=== PATIENT | male | born 1965 | race Caucasian/White ===

== ENCOUNTER 2020-03-11 23:04 | Inpatient (IN) | payer MEDICAID, OTHER ==
[~2020-03-11] VITALS: Ht 177.8 cm; Wt 90.3 kg
--- NOTE | 2020-03-11 23:14 | NUR ---
BIB FAMILY C/O R HIP PAIN S/P FALLING OFF SKATEBBOARD. PT DENIES KO
--- NOTE | 2020-03-11 23:47 | NUR ---
BIBFAMILY FROM HOME TO ER BED 6. AAOX4. NOT IN RESP DISTRESS. CAME IN FOR R HIP PAIN S/P FALLIN GOF A SKATEBOARD. PAIN IS RATE 8/10 AGGREVATED BY MOVEMENT. DENIES HT NOR KO. PEDAL PULSE FELT. SENSATION FELT AND ABLE TO MOVE TOES. NO NOTED ROTATION NOR SHORTENING. MD WAS AT BEDSIDE FOR EVAL. PT DENIED PAIN MEDS AT THIS TIME. ORDERS RECEIVED NOTED AND CARRIED OUT.
--- NOTE | 2020-03-12 00:04 | NUR ---
REPORT GIVEN TO M/S ANGELIC KATZ.
--- NOTE | 2020-03-12 00:05 | NUR ---
BLOOD DRAWN AND SENT TO STAT LAB
[2020-03-12 00:18] LABS: BASOPHILS # (AUTO) 0.1 /CMM (0.0-0.2); BASOPHILS % (AUTO) 0.4 % (0.0-2.0); EOSINOPHILS % (AUTO) 0.3 % (0.0-6.0); HEMATOCRIT 44 % (39-51); HEMOGLOBIN 14.6 g/dL (13.5-17.5); LYMPHOCYTES # (AUTO) 1.3 /CMM (0.8-4.8); LYMPHOCYTES % (AUTO) 8.9 % (20.0-44.0); MEAN CORPUSCULAR HGB CONC 33 g/dl (31.0-36.0); MEAN CORPUSCULAR VOLUME 88 fL (80-96); MONOCYTES # (AUTO) 0.8 /CMM (0.1-1.30); MONOCYTES % (AUTO) 5.5 % (2.0-12.0); NEUTROPHILS # (AUTO) 12.6 /CMM (1.8-8.9); NEUTROPHILS % (AUTO) 84.9 % (43.0-81.0); PLATELET COUNT (AUTO) 246 /CMM (150-450); RED BLOOD CELL COUNT(AUTO) 5.06 MIL/uL (4.5-6.0); WHITE BLOOD COUNT (AUTO) 14.8 K/uL (4.3-11.0)
[2020-03-12 00:27] LABS: CALCIUM, SERUM 8.6 mg/dL (8.5-10.1); CREATININE 1.1 mg/dL (0.6-1.3); POTASSIUM 3.8 mmol/L (3.5-5.1)
[2020-03-12 00:33] LABS: BILIRUBIN,DIRECT 0.1 mg/dL (0.0-0.2); BILIRUBIN,TOTAL 0.3 mg/dL (0.2-1.0); TOTAL PROTEIN, SERUM 7.8 g/dL (6.4-8.2)
[2020-03-12] MEDS ORDERED: IV D5/0.45 NACL 1,000 ML IV PRN (00:42)
[2020-03-12] MEDS ORDERED: LORAZEPAM INJ 2 MG/ML VIAL IV PRN (01:00)
--- NOTE | 2020-03-12 01:01 | NUR ---
PT TRANSFERRED TO ROOM VIA ACLS PROTOCOL
--- NOTE | 2020-03-12 01:20 | NUR ---
RN NOTES ADMITTED PATIENT FROM ER TRANSPORTED VIA GURNEY, ALERT ORIENTED X4, BREATHING EVEN AND NON LABORED. INITIAL PHYSICAL ASSESSMENT INITIATED,PATIENT REFUSED SKIN ASSESSMENT, REFUSED TO TAKE OFF HIS CASUAL CLOTHES FOR THOROUGH ASSESSMENT. ADMISSION PROCESS IMPLEMENTED, REPOSITIONED FOR COMFORT. IN PAIN BUT REFUSED TO TAKE PAIN MEDICATION AT THIS TIME. PAIN IS TOLERABLE PER PATIENT. ON NPO. SAFETY MEASURES IN PLACE, ASPIRATION PRECAUTION EMPHASIZE, CALL LIGHT WITH IN EASY REACH. WILL CONTINUE TO MONITOR. ALL NEEDS ANTICIPATED, WILL CONTINUE TO MONITOR ACCORDINGLY.
[2020-03-12 01:30] VITALS: BP 130/79
--- NOTE | 2020-03-12 01:40 | NUR ---
RN NOTES PATIENT REFUSED TO REMOVED HIS CASUAL CLOTHES FOR SKIN ASSESSMENT. WILL FOLLOW UP.
[2020-03-12 02:08] VITALS: BP 140/86
--- NOTE | 2020-03-12 02:10 | NUR ---
RN NOTES OFFERED SCD, PATIENT REFUSED DUE TO PAIN. PATIENT DOESN'T WANNA BE BOTHERED AT THIS TIME, KEEP WARN, DRY AND COMFORTABLE. WILL CONTINUE TO MONITOR.
[2020-03-12] MEDS: MORPHINE SULFATE INJ 2 MG/ML DISP.SYRIN IV PRN ×5 (02:20→20:53)
--- NOTE | 2020-03-12 05:39 | NUR ---
RN NOTES PATIENT STILL REFUSED TO REMOVED CASUAL CLOTHES FOR SKIN ASSESSMENT, PAIN GETS WORSE WHEN CHANGING POSITION. WILL ENDORSE TO AM NURSE TO FOLLOW UP.
[2020-03-12 07:16] LABS: BASOPHILS % (AUTO) 0.2 % (0.0-2.0); EOSINOPHILS % (AUTO) 0.2 % (0.0-6.0); HEMATOCRIT 43 % (39-51); HEMOGLOBIN 14.1 g/dL (13.5-17.5); LYMPHOCYTES # (AUTO) 1.5 /CMM (0.8-4.8); LYMPHOCYTES % (AUTO) 12.9 % (20.0-44.0); MEAN CORPUSCULAR HGB CONC 33 g/dl (31.0-36.0); MEAN CORPUSCULAR VOLUME 86 fL (80-96); MONOCYTES % (AUTO) 8.6 % (2.0-12.0); NEUTROPHILS # (AUTO) 9.1 /CMM (1.8-8.9); NEUTROPHILS % (AUTO) 78.1 % (43.0-81.0); PLATELET COUNT (AUTO) 216 /CMM (150-450); RED BLOOD CELL COUNT(AUTO) 4.94 MIL/uL (4.5-6.0); WHITE BLOOD COUNT (AUTO) 11.7 K/uL (4.3-11.0)
[2020-03-12 07:17] LABS: ALBUMIN 3.8 g/dL (3.4-5.0); BILIRUBIN,TOTAL 0.5 mg/dL (0.2-1.0); CALCIUM, SERUM 8.8 mg/dL (8.5-10.1); CREATININE 0.8 mg/dL (0.6-1.3); MAGNESIUM 1.8 mg/dL (1.8-2.4); PHOSPHORUS 3.2 mg/dL (2.5-4.9); POTASSIUM 4.5 mmol/L (3.5-5.1); THYROID STIMULATING HORMONE 0.502 uIU/mL (0.358-3.74); TOTAL PROTEIN, SERUM 7.4 g/dL (6.4-8.2)
--- NOTE | 2020-03-12 07:21 | NUR ---
RN NOTES ALL NEEDS ATTENDED AND MET, SAFETY MEASURES IN PLACE, NPO MAINTAINED, CALL LIGHT WITH IN EASY REACH. ENDORSED TO AM NURSE FOR CONTINUITY OF CARE.
[2020-03-12] MEDS: IV D5/ 0.9% NACL 1,000 ML IV PRN ×2 (08:16→20:52)
[2020-03-12 08:18] VITALS: BP 128/70
--- NOTE | 2020-03-12 09:39 | NUR ---
WOUND CARE CONSULT: PT PRESENTS WITH BLANCHABLE REDNESS TO RT HEEL, PRESENT ON ADMISSION. PT REFUSED TO TURN FOR FULL SKIN ASSESSMENT OF BACK AND BUTTOCKS. RT HIP AREA NOTED TO BE SWOLLEN. RECOMMENDATIONS MADE FOR SKIN PROTECTION. DISCUSSED WITH NURSING STAFF. HEELS FLOATED ON PILLOWS. MD IN AGREEMENT WITH PLAN OF CARE. WILL SEE PRN.
[2020-03-12 17:22] VITALS: BP 132/83
--- NOTE | 2020-03-12 18:30 | NUR ---
hetal scott pa in to see pt as well as dr. arias and karishma pacheco.orders given to have surg. tomorrow.pt. medicated for rt leg pain x3 with morphine.nutrition therapist ant paige.
--- NOTE | 2020-03-12 19:30 | NUR ---
MS RN NOTES ON BED SLEEPING,AROUSABLE TO VERBAL STIMULI,BREATHING EASY,NO SOB.INSTRUCTED NPO POST MIDNIGHT FOR SURGERY TOMORROW.CONSENT SIGNED ON CHART.IVF D5NS AT 100ML/HR RATE INFUSING WELL ON LEFT AC,SITE PATENT.CALL LIGHT IN REACH,NEED ANTICIPATED.
[2020-03-12 20:00] VITALS: BP 140/86
--- NOTE | 2020-03-12 20:52 | NUR ---
MS RN NOTES PAIN MANAGEMENT C/O PAIN RIGHT LEG FRACTURE,MEDICATED WITH MORPHINE 2MG IV ORDERED FOR PAIN 8/10 ON PAIN SCALE.
[2020-03-13] MEDS: MORPHINE SULFATE INJ 2 MG/ML DISP.SYRIN IV PRN ×2 (01:41→04:46)
--- NOTE | 2020-03-13 01:41 | NUR ---
MS RN NOTES PAIN MANAGEMENT C/O RIGHT HIP PAIN 8/10 ON PAIN SCALE.MEDICATED WITH MORPHINE 2MG IVP ORDERED FOR SEVERE PAIN.
--- NOTE | 2020-03-13 04:46 | NUR ---
MS RN NOTES PAIN MANAGEMENT AWAKE,IN A LOT OF PAIN 10/10 ON PAIN SCALE,MEDICATED WITH MORPHINE 2MG IV GIVEN EARLY BEFORE 4 HOURS TIME.PATIENT DEMAND ON IT.
--- NOTE | 2020-03-13 06:06 | NUR ---
MS RN NOTES ON BED SLEEPING,NO SOB,KEPT NPO FOR RIGHT HIP INTRAMEDULLARY RODDING AT [address] CALDERON.IVF IN PROGRESS,SITE PATENT LEFT AC.CALL LIGHT IN REACH,NEEDS ATTENDED.
[2020-03-13] MEDS ORDERED: ANESTHESIA TRAY IN PYXIS 1 EA TRAY MC ONE (07:11)
[2020-03-13] MEDS ORDERED: BUPIVACAINE 0.5 % PF 150 MG/30 ML VIAL ONE (07:11)
[2020-03-13] MEDS ORDERED: BACITRACIN 50000 UNITS/VIAL ONE (07:11)
--- NOTE | 2020-03-13 07:20 | NUR ---
MS RN NOTES PATIENT IN BED ALERT ORIENTED X 4. NO ACUTE DISTRESS NOTED. BREATHING UNLABORED. NO SOB NOTED. IV ACCESS PATENT AND INTACT, NO REDNESS, NO SWELLING NOTED. SAFETY MEASURES IN PLACE. CALL LIGHT WITHIN REACH. WILL CONTINUE TO MONITOR ACCORDINGLY.
--- NOTE | 2020-03-13 07:25 | NUR ---
MS RN NOTES PATIENT TRANSPORTED TO OPERATING ROOM IN STABLE CONDITION, ALERT ORIENTED X 4. NO ACUTE DISTRESS NOTED.
[2020-03-13] MEDS ORDERED: SCOPOLAMINE HBR 1 EA PATCH.TD72 TD ONE (07:32)
[2020-03-13] MEDS ORDERED: FENTANYL PF 100MCG/2ML AMPUL ONE ×2 (07:32→09:23)
[2020-03-13] MEDS ORDERED: MIDAZOLAM HCL 2 MG/2ML VIAL ONE (07:32)
[2020-03-13] MEDS ORDERED: SEVOFLURANE 250 ML BOTTLE IH ONE (07:33)
[2020-03-13] MEDS ORDERED: PROPOFOL 100 ML ONE (07:33)
[2020-03-13 07:42] LABS: BASOPHILS % (AUTO) 0.4 % (0.0-2.0); EOSINOPHILS % (AUTO) 1.2 % (0.0-6.0); HEMATOCRIT 39 % (39-51); HEMOGLOBIN 13.2 g/dL (13.5-17.5); LYMPHOCYTES # (AUTO) 1.9 /CMM (0.8-4.8); MEAN CORPUSCULAR HGB CONC 34 g/dl (31.0-36.0); MEAN CORPUSCULAR VOLUME 86 fL (80-96); MONOCYTES # (AUTO) 1.2 /CMM (0.1-1.30); MONOCYTES % (AUTO) 12.2 % (2.0-12.0); NEUTROPHILS # (AUTO) 6.8 /CMM (1.8-8.9); NEUTROPHILS % (AUTO) 67.2 % (43.0-81.0); PLATELET COUNT (AUTO) 184 /CMM (150-450); WHITE BLOOD COUNT (AUTO) 10.1 K/uL (4.3-11.0)
[2020-03-13 08:14] LABS: ALBUMIN 3.2 g/dL (3.4-5.0); BILIRUBIN,TOTAL 0.8 mg/dL (0.2-1.0); CALCIUM, SERUM 8.4 mg/dL (8.5-10.1); CREATININE 0.7 mg/dL (0.6-1.3); PHOSPHORUS 2.4 mg/dL (2.5-4.9); TOTAL PROTEIN, SERUM 6.5 g/dL (6.4-8.2)
[2020-03-13 10:20] VITALS: BP 132/81
--- NOTE | 2020-03-13 10:20 | NUR ---
MS RN NOTES PATIENT CAME BACK FROM RECOVERY ROOM IN STABLE CONDITION, ALERT ORIENTED X 4, VITALS SIGNS STABLE. NO ACUTE DISTRESS NOTED. RIGHT HIP AND RIGHT THIGH SURGICAL DRESSING CLEAN DRY AND INTACT, WITH ICE PACK. WITH PADILLA CATHETER INTACT DRAINING WELL. SCD ON BILATERAL LOWER EXTREMITY ON. PATIENT DENIED PAIN AT THIS TIME. WILL CONTINUE TO MONITOR PATIENT.
[2020-03-13 10:21] LABS: BASOPHILS % (AUTO) 0.3 % (0.0-2.0); EOSINOPHILS % (AUTO) 0.5 % (0.0-6.0); HEMATOCRIT 39 % (39-51); HEMOGLOBIN 12.9 g/dL (13.5-17.5); LYMPHOCYTES # (AUTO) 1.5 /CMM (0.8-4.8); LYMPHOCYTES % (AUTO) 12.1 % (20.0-44.0); MEAN CORPUSCULAR HGB CONC 33 g/dl (31.0-36.0); MEAN CORPUSCULAR VOLUME 88 fL (80-96); MONOCYTES # (AUTO) 0.8 /CMM (0.1-1.30); MONOCYTES % (AUTO) 6.6 % (2.0-12.0); NEUTROPHILS # (AUTO) 10.1 /CMM (1.8-8.9); NEUTROPHILS % (AUTO) 80.5 % (43.0-81.0); PLATELET COUNT (AUTO) 183 /CMM (150-450); RED BLOOD CELL COUNT(AUTO) 4.47 MIL/uL (4.5-6.0); WHITE BLOOD COUNT (AUTO) 12.5 K/uL (4.3-11.0)
[2020-03-13] MEDS ORDERED: IV LR 1000 ML 1,000 ML IV PRN (10:30)
--- NOTE | 2020-03-13 11:20 | NUR ---
MS RN NOTES PATIENT REMAIN STABLE, VITAL SIGNS WITHIN NORMAL LIMITS. PATIENT ALERT ORIENTED X 4. WILL CONTINUE TO MONITOR PATIENT.
[2020-03-13] MEDS: HYDROCODONE/APAP 5/325MG 1 EACH TABLET PO PRN (11:35)
--- NOTE | 2020-03-13 11:35 | NUR ---
MS RN NOTES PATIENT COMPLAINT OF PAIN ON RIGHT HIP, VITAL SIGNS WITHIN NORMAL LIMIT. NORCO GIVEN ORDERED.
[2020-03-13] MEDS ORDERED: NEUTRA PHOS 1 POWD.PACKET PO ONE (14:30)
[2020-03-13 16:10] VITALS: BP 147/74
[2020-03-13] MEDS: CEFAZOLIN 2 GM in IV D5W 100 ML IV SCH (16:57)
--- NOTE | 2020-03-13 18:56 | NUR ---
MS RN NOTES PATIENT IN BED ALERT ORIENTED X 4. NO ACUTE DISTRESS NOTED. BREATHING UNLABORED. NO SOB NOTED. IV ACCESS PATENT AND INTACT, NO REDNESS, NO SWELLING NOTED. NEEDS ATTENDED AND ANTICIPATED. KEPT COMFORTABLE. SAFETY MEASURES IN PLACE. CALL LIGHT WITHIN REACH. PATIENT REMAIN WITH STABLE VITAL SIGNS THROUGH OUT THE SHIFT. RIGHT HIP AND THIGH DRESSING CLEAN DRY AND INTACT. SAFETY MEASURES IN PLACE. CALL LIGHT WITHIN REACH. WILL ENDORSE TO NIGHT NURSE FOR CONTINUITY OF CARE.
--- NOTE | 2020-03-13 19:30 | NUR ---
MS RN NOTES RECEIVED ON BED A/O X3,BREATHING REGULAR,NOT IN ANY FORM OF DISTRESS.S/P RIGHT HIP INTRA MEDULLARY RODDING TODAY BY DR CALDERON.DRESSING INTACT AND DRY,SALINE LOCK LEFT AC INTACT AND PATENT.CALL LIGHT IN REACH,NEEDS ANTICIPATED.
[2020-03-13] MEDS: ONDANSETRON HCL/PF 4 MG/2 ML VIAL IVP PRN (19:41)
--- NOTE | 2020-03-13 19:41 | NUR ---
MS RN NOTES VOMITTED MOSTLY BILE,MEDICATED WITH ZOFRAN 4MG IV ORDERED
[2020-03-13 20:00] VITALS: BP 125/70
[2020-03-13 20:55] VITALS: BP 125/70
--- NOTE | 2020-03-13 23:00 | NUR ---
MS RN NOTES NAUSEA SUBSIDED,PAIN TOLERABLE AT THIS TIME.
[2020-03-14] MEDS: CEFAZOLIN 2 GM in IV D5W 100 ML IV SCH (00:16)
--- NOTE | 2020-03-14 04:30 | NUR ---
MS RN NOTES AWAKE,PADILLA CATHETER REMOVED PER PATIENT REQUEST.EMPTIED 850ML OF URINE.
--- NOTE | 2020-03-14 04:35 | NUR ---
MS RN NOTES PLACE ON WHEELCHAIR AND WHEELED AROUND THE UNIT FOR FRESH AIR,CLAIMED HE'S SO BORED INSIDE THE ROOM
[2020-03-14] MEDS: HYDROCODONE/APAP 5/325MG 1 EACH TABLET PO PRN (04:44)
--- NOTE | 2020-03-14 04:44 | NUR ---
MS RN NOTES C/O PAIN ON RIGHT HIP 7/10 ON PAIN SCALE.MEDICATED WITH NORCO 5/325MG,2 TABS ORDERED.
[2020-03-14] MEDS: ONDANSETRON HCL/PF 4 MG/2 ML VIAL IVP PRN (04:53)
--- NOTE | 2020-03-14 04:53 | NUR ---
MS RN NOTES FEELING NAUSEATED,ZOFRAN 4MG IV GIVEN.
--- NOTE | 2020-03-14 06:11 | NUR ---
MS RN NOTES SLEPT WELL WITH INTERVAL,PAIN MANAGEMENT EFFECTIVE,NAUSEA IMPROVED.VERBALIZING HE WANTS TO GO HOME TODAY.DRESSING TO RIGHT HIP INTACT AND DRY.CALL LIGHT IN REACH,NEEDS ATTENDED.
--- NOTE | 2020-03-14 07:15 | NUR ---
MS RN NOTES PATIENT IN BED ALERT ORIENTED X 4. NO ACUTE DISTRESS NOTED. BREATHING UNLABORED. NO SOB NOTED. IV ACCESS PATENT AND INTACT, NO REDNESS, NO SWELLING NOTED. SAFETY MEASURES IN PLACE. CALL LIGHT WITHIN REACH. RIGHT HIP AND THIGH SURGICAL DRESSING CLEAN DRY AND INTACT. SAFETY MEASURES IN PLACE. CALL LIGHT WITHIN REACH. WILL CONTINUE TO MONITOR ACCORDINGLY.
[2020-03-14 07:49] LABS: CREATININE 0.9 mg/dL (0.6-1.3); MAGNESIUM 1.8 mg/dL (1.8-2.4); PHOSPHORUS 2.7 mg/dL (2.5-4.9); POTASSIUM 3.8 mmol/L (3.5-5.1)
[2020-03-14 08:00] VITALS: BP 124/60
[2020-03-14 08:38] LABS: BASOPHILS % (AUTO) 0.2 % (0.0-2.0); HEMATOCRIT 29 % (39-51); HEMOGLOBIN 9.8 g/dL (13.5-17.5); LYMPHOCYTES % (AUTO) 15.9 % (20.0-44.0); MEAN CORPUSCULAR HGB CONC 34 g/dl (31.0-36.0); MEAN CORPUSCULAR VOLUME 86 fL (80-96); MONOCYTES # (AUTO) 1.6 /CMM (0.1-1.30); MONOCYTES % (AUTO) 12.4 % (2.0-12.0); NEUTROPHILS % (AUTO) 71.5 % (43.0-81.0); PLATELET COUNT (AUTO) 178 /CMM (150-450); WHITE BLOOD COUNT (AUTO) 12.6 K/uL (4.3-11.0)
[2020-03-14] MEDS ORDERED: ENOXAPARIN SODIUM 40 MG/0.4 ML DISP.SYRIN SQ SCH (09:00)
[2020-03-14 11:04] LABS: IRON, SERUM 24 ug/dl (50-175); TOTAL IRON BINDING CAPACITY 252 ug/dl (250-450)
[2020-03-14 11:17] LABS: FERRITIN 186 ng/mL (8-388)
[2020-03-14] MEDS ORDERED: ASPI-869 PO (13:09)
[2020-03-14] MEDS ORDERED: ACET325C7 PO (13:09)
--- NOTE | 2020-03-14 16:55 | NUR ---
MS BED MACHINE OPERATOR NOTES PATIENT DISCHARGE HOME WITH STABLE VITAL SIGNS. PATIENT WITH HOME HEALTH ARRANGED BY CASE MANAGEMENT. ALERT ORIENTED X 4. NO ACUTE DISTRESS NOTED. BREATHING UNLABORED. NO SOB NOTED.DENIED ANY PAIN. NO VOMITING NOTED. IV ACCESS REMOVED, NO BLEEDING, NO REDNESS, NO SWELLING NOTED. RIGHT HIP AND RIGHT THIGH DRESSING CLEAN DRY AND INTACT, PHOTO TAKEN OF RIGHT HIP AND THIGH WITH DRESSING REFUSED BY PATIENT. DISCHARGE INSTRUCTIONS GIVEN TO THE PATIENT , INCLUDING FOLLOW UP WITH PRIMARY DOCTOR AND ORTHOPEDIC DOCTOR ,VERBALIZED UNDERSTANDING. ALL BELONGINGS ACCOUNTED FOR.DISCHARGE HOME WITH [employer]. WHEELED TO LOBBY, ASSISTED TO A PRIVATE CAR PICKED UP BY MOTHER IN STABLE CONDITION.
== END 2020-03-14 16:55 | disposition home health service (06) | DRG 308 ==
LOC: ER 23:06 → MED 03-12 00:03
PROC: 0QS606Z Reposition Right Upper Femur with Intramedullary Internal Fixation Device, Open Approach (ICD-10-PCS; principal; 2020-03-13)
DX: S72.141A Displaced intertrochanteric fracture of right femur, initial encounter for closed fracture (principal); D64.9 Anemia, unspecified; D72.829 Elevated white blood cell count, unspecified; V00.131A Fall from skateboard, initial encounter; Y92.89 Other specified places as the place of occurrence of the external cause; R79.89 Other specified abnormal findings of blood chemistry; Z87.891 Personal history of nicotine dependence
CPT/HCPCS: 36415; 71045-TC; 73502; 80048-TC; 80053-TC; 80061-TC; 80076-TC; 82728-TC; 83540-TC; 83735-TC; 84100-TC; 84443-TC; 85025-TC; 85730-TC; 86850-TC; 87081-TC; 93307-TC; 97110-TC; 97116-TC; 97530-TC; A6209; C1713; G0378; J0690; J1650; J2250; J2270; J2405; J3010; J3490; J7042; J7060; J7120